=== PATIENT | female | born 1950 | race Caucasian/White ===

== ENCOUNTER 2021-11-07 16:34 | Emergency (ER) | payer MEDICARE ==
[2021-11-07] MEDS ORDERED: Adenosine 6 MG/2 ML SDV ONE (16:44)
[2021-11-07] MEDS: Adenosine 6 MG/2 ML SDV IVPUSH ONE (16:47)
== END 2021-11-07 18:49 | disposition home or self-care (01) ==
LOC: JP.ED 16:34
DX: I47.1 Supraventricular tachycardia (principal); Z88.5 Allergy status to narcotic agent; Z88.8 Allergy status to other drugs, medicaments and biological substances; Z88.1 Allergy status to other antibiotic agents
CPT/HCPCS: 36415; 80053; 84443; 84484; 85025; 93005; 96374; 99285; J0153

== ENCOUNTER 2022-05-27 18:29 | Emergency (ER) | payer MEDICARE | END 2022-05-27 19:24 | disposition home or self-care (01) | LOC: JP.ED 18:29 | DX: R55 Syncope and collapse (principal); R00.2 Palpitations; Z88.1 Allergy status to other antibiotic agents; Z88.5 Allergy status to narcotic agent; Z88.8 Allergy status to other drugs, medicaments and biological substances; Z79.899 Other long term (current) drug therapy; Z79.82 Long term (current) use of aspirin; Z90.49 Acquired absence of other specified parts of digestive tract; Z90.710 Acquired absence of both cervix and uterus | CPT/HCPCS: 99284 ==

== ENCOUNTER 2024-04-09 10:18 | Emergency (ER) | payer MEDICARE ==
[2024-04-09 11:08] LABS: BASOPHILS ABSOLUTE AUTO 0.03 K/uL (0.00-0.10); BASOPHILS PERCENT AUTO 0.3 % (0.1-1.3); HEMATOCRIT 32.9 % (34.3-46.0); HEMOGLOBIN 11.8 g/dL (11.2-15.5); IMMATURE GRAN ABSOLUTE AUTO 0.13 K/uL (0.00-0.23); IMMATURE GRAN PERCENT AUTO 1.1 % (0.0-0.7); LYMPHOCYTES ABSOLUTE AUTO 0.37 K/uL (0.8-3.3); LYMPHOCYTES PERCENT AUTO 3.2 % (11.4-47.7); MEAN CORPUSCULAR HEMOGLOBIN 31.5 pg (31.6-35.5); MEAN CORPUSCULAR HGB CONC 35.9 g/dL (31.6-35.5); MEAN CORPUSCULAR VOLUME 87.7 fL (81.4-99.0); MONOCYTES ABSOLUTE AUTO 0.43 K/uL (0.20-0.90); MONOCYTES PERCENT AUTO 3.7 % (3.3-12.6); NEUTROPHILS ABSOLUTE AUTO 10.57 K/uL (1.0-7.6); NEUTROPHILS PERCENT AUTO 91.7 % (40.0-78.1); PLATELET COUNT,PLT 146 K/uL (130-375); RED BLOOD CELL COUNT 3.75 M/uL (3.77-5.24); WHITE BLOOD CELL COUNT,WBC 11.5 K/uL (3.2-11.0)
[2024-04-09] MEDS: Sodium Chloride 0.9% 1,000 ML IV ONE (11:10)
[2024-04-09 11:12] LABS: APPEARANCE,URINE CLOUDY (CLEAR); BILIRUBIN,URINE MODERATE (NEGATIVE); COLOR,URINE YELLOW (YELLOW); GLUCOSE,URINE NEGATIVE (NEGATIVE); KETONES,URINE 40 mg/dL (NEGATIVE); LEUKOCYTE ESTERASE,URINE NEGATIVE (NEGATIVE); NITRITE,URINE NEGATIVE (NEGATIVE); OCCULT BLOOD,URINE TRACE-INTACT (NEGATIVE); PH,URINE 5.5 (5.0-8.0); PROTEIN,URINE 100 mg/dL (NEGATIVE)
[2024-04-09 11:22] LABS: AMORPHOUS SEDIMENT,URINE MODERATE; BACTERIA,URINE MANY; EPITHELIAL CELLS,URINE MANY; MUCUS,URINE NOT SEEN; RBC,URINE NOT SEEN (0-5)
[2024-04-09 11:26] LABS: WBC,URINE 0-5 (0-5)
[2024-04-09 11:33] LABS: A/G RATIO 0.6 (1.2-2.2); ALANINE AMINOTRANSFERASE,ALT 22 U/L (12-78); ALBUMIN 2.3 g/dL (3.4-5.0); ALKALINE PHOSPHATASE 126 U/L (46-116); ASPARTATE AMNIOTRANSFERASE,AST 35 U/L (15-37); BILIRUBIN TOTAL 0.9 mg/dL (0.2-1.0); BLOOD UREA NITROGEN,BUN 22 mg/dL (7-18); CALCIUM 7.6 mg/dL (8.5-10.1); CARBON DIOXIDE,CO2 27 mmol/L (21-32); CHLORIDE,CL 92 mmol/L (100-108); EST CRCL DRUG DOSING (CG) 48.72 mL/min; ESTIMATED GFR 59 mL/min (>60); GLUCOSE RANDOM 130 mg/dL (74-106); PROTEIN TOTAL,TP 6.1 g/dL (6.4-8.2); SODIUM,NA 130 mmol/L (140-148)
[2024-04-09] MEDS: Promethazine 12.5 MG in Sodium Chloride 0.9% 50 ML IV ONE (11:36)
[2024-04-09] MEDS: Sucralfate 1 GM Tab PO ONE (12:19)
[2024-04-09] MEDS: Potassium Chloride 20 MEQ Tab.ER PO ONE (13:19)
== END 2024-04-09 13:49 | disposition home or self-care (01) ==
LOC: JP.ED 10:18
DX: E86.0 Dehydration (principal); E87.6 Hypokalemia; Z90.49 Acquired absence of other specified parts of digestive tract; Z90.710 Acquired absence of both cervix and uterus; Z79.899 Other long term (current) drug therapy; Z88.1 Allergy status to other antibiotic agents; Z88.5 Allergy status to narcotic agent; Z88.9 Allergy status to unspecified drugs, medicaments and biological substances
CPT/HCPCS: 36415; 80053; 81001; 83605; 83690; 85025; 96361; 96365; 99284; A9270; J2550; J3490; J7030

== ENCOUNTER 2024-04-12 09:51 | Emergency (ER) | payer MEDICARE ==
[2024-04-12] MEDS: Sodium Chloride 0.9% 500 ML IV ONE ×2 (11:30→12:14)
[2024-04-12] MEDS: fentaNYL 50 MCG/ML SDV IVPUSH ONE (11:31)
[2024-04-12] MEDS: Sodium Chloride 0.9% 10 ML Syringe FLUSH PRN (11:31)
[2024-04-12 11:34] LABS: BASOPHILS PERCENT AUTO 0.4 % (0.1-1.3); EOSINOPHILS PERCENT AUTO 0.2 % (0.0-5.4); HEMATOCRIT 31.4 % (34.3-46.0); HEMOGLOBIN 11.1 g/dL (11.2-15.5); IMMATURE GRAN ABSOLUTE AUTO 0.07 K/uL (0.00-0.23); IMMATURE GRAN PERCENT AUTO 1.4 % (0.0-0.7); LYMPHOCYTES ABSOLUTE AUTO 1.38 K/uL (0.8-3.3); LYMPHOCYTES PERCENT AUTO 28.4 % (11.4-47.7); MEAN CORPUSCULAR HGB CONC 35.4 g/dL (31.6-35.5); MEAN CORPUSCULAR VOLUME 87.7 fL (81.4-99.0); MONOCYTES ABSOLUTE AUTO 0.44 K/uL (0.20-0.90); MONOCYTES PERCENT AUTO 9.1 % (3.3-12.6); NEUTROPHILS ABSOLUTE AUTO 2.94 K/uL (1.0-7.6); NEUTROPHILS PERCENT AUTO 60.5 % (40.0-78.1); PLATELET COUNT,PLT 102 K/uL (130-375); RED BLOOD CELL COUNT 3.58 M/uL (3.77-5.24); WHITE BLOOD CELL COUNT,WBC 4.9 K/uL (3.2-11.0)
[2024-04-12 11:56] LABS: A/G RATIO 0.5 (1.2-2.2); ALANINE AMINOTRANSFERASE,ALT 21 U/L (12-78); ALBUMIN 1.9 g/dL (3.4-5.0); ALKALINE PHOSPHATASE 101 U/L (46-116); ASPARTATE AMNIOTRANSFERASE,AST 53 U/L (15-37); BLOOD UREA NITROGEN,BUN 14 mg/dL (7-18); C-REACTIVE PROTEIN 15.41 mg/dL (<0.50); CALCIUM 7.2 mg/dL (8.5-10.1); CARBON DIOXIDE,CO2 29 mmol/L (21-32); CHLORIDE,CL 88 mmol/L (100-108); CREATININE 0.7 mg/dL (0.6-1.0); ESTIMATED GFR 91 mL/min (>60); GLUCOSE RANDOM 97 mg/dL (74-106); PROTEIN TOTAL,TP 5.6 g/dL (6.4-8.2); SODIUM,NA 129 mmol/L (140-148)
[2024-04-12 11:59] LABS: BASOPHILS ABSOLUTE AUTO 0.02 K/uL (0.00-0.10); EOSINOPHILS ABSOLUTE AUTO 0.01 K/uL (0.00-0.40); LACTIC ACID 1.7 mmol/L (0.4-2.0)
[2024-04-12] MEDS ORDERED: Potassium Chloride 10 MEQ in Premix Bag 2 BAG IV ONE (12:04)
[2024-04-12] MEDS: Potassium Chloride 10 MEQ in Premix Bag 1 BAG IV SCH (12:14)
[2024-04-12] MEDS: Sodium Chloride 0.9% 10 ML Syringe FLUSH ONE (12:51)
[2024-04-12] MEDS: Iopamidol 612 MG/ML 100 ML Bottle IV SCH (12:51)
[2024-04-12] MEDS: Sodium Chloride 0.9% 60 ML IV SCH (12:52)
[2024-04-12 14:36] LABS: LYME AB IgG Positive (Negative); LYME AB IgM Positive (Negative)
[2024-04-15 15:18] LABS: B. BURGDORFERI IGG IMMUNOBLOT Negative (Negative); B. BURGDORFERI IGM IMMUNOBLOT Positive (Negative)
[2024-04-15 18:00] LABS: ANAPLASMA PHAGOCYTOPHILUM PCR Detected; BABESIA MICROTI BY PCR Not Detected; BABESIA SPECIES BY PCR Not Detected; EHRLICHIA CHAFFEENSIS BY PCR Not Detected; EHRLICHIA EWINGII/CANIS BY PCR Not Detected; EHRLICHIA MURIS-LIKE BY PCR Not Detected
== END 2024-04-12 15:10 | disposition home or self-care (01) ==
LOC: JP.ED 09:51
DX: R11.2 Nausea with vomiting, unspecified (principal); E87.6 Hypokalemia; A69.20 Lyme disease, unspecified; E78.00 Pure hypercholesterolemia, unspecified; Z90.49 Acquired absence of other specified parts of digestive tract; Z90.710 Acquired absence of both cervix and uterus; Z79.82 Long term (current) use of aspirin; Z79.899 Other long term (current) drug therapy; Z88.1 Allergy status to other antibiotic agents; Z88.8 Allergy status to other drugs, medicaments and biological substances; Z88.5 Allergy status to narcotic agent
CPT/HCPCS: 36415; 74177; 74177-26; 80053; 83605; 84145; 84484; 85025; 86140; 86308; 86617; 86618; 87040; 87468; 87469; 87484; 87798; 96365; 96366; 96375; 99284; 99284-25; J3010; J3480; J3490; J7040; Q9967